=== PATIENT | male | born 1980 | race Caucasian/White ===

== ENCOUNTER 2018-07-26 20:21 | Inpatient (IN) ==
[2018-07-26 20:38] LABS: URINE SOURCE CATH
[2018-07-26] MEDS ORDERED: NS 1,000 ML IV ONE (20:47)
--- NOTE | 2018-07-26 20:47 | PROVIDER DOCUMENTATION ---
[id number] Abuse/Overdose - General Chief Complaint: Overdose Stated Complaint: OD Time Seen by Provider: 07/26/18 20:22 Allergies/Adverse Reactions: Allergies Allergy/AdvReac Type Severity Reaction Status Date / Time No Known Allergies Allergy Verified 07/20/18 14:37 Home Medications: Home Medication List Medication Instructions Recorded Confirmed Last Taken Type NK [No Home Medications] 07/20/18 07/20/18 Unknown History Past History - Adult - PAST MEDICAL HISTORY-ADULT Major Childhood Illnesses: reports: denies history Cardiovascular: reports: denies history Respiratory: reports: denies history Gastrointestinal: reports: denies history Obstetrical/Gynecological: reports: denies history Genitourinary: reports: denies history Musculoskeletal: reports: denies history Neurological: reports: denies history Endocrine/Immune: reports: denies history Other Conditions: reports: denies history - IMMUNIZATION STATUS Childhood Immunizations: See Nurse Assessment Flu Vaccine: See Nurse Assessment - FAMILY HISTORY Family History: reviewed, not pertinent Progress - PLAN OF CARE/RESULTS Progress/Plan/Lab Results: Vital Signs - 8 hr 07/26/18 20:22 Temperature 98.6 F Pulse Rate 106 H Respiratory Rate 18 Blood Pressure 154/95 O2 Sat by Pulse Oximetry 100 Laboratory Results - last 24 hr 07/26/18 07/26/18 20:21 20:34 POC Glucose 129 H Urine Source CATH Orders Category Date Time Status Cardiac Monitoring DIRECTED Care 07/26/18 20:28 Active Finger Stick Blood Sugar (ED) DIRECTED Care 07/26/18 20:28 Active Ruiz Cath Insertion ORDERED Care 07/26/18 20:34 Active ACETAMINOPHEN [TDM] Stat Lab 07/26/18 20:28 Ordered ALCOHOL BLOOD Stat Lab 07/26/18 20:28 Ordered CBC WITH ELECTRONIC DIFF [HEME] Stat Lab 07/26/18 20:31 Ordered COMPREHENSIVE METABOLIC PANEL [CHEM] Stat Lab 07/26/18 20:31 Ordered SALICYLATES [TDM] Stat Lab 07/26/18 20:[address] [URINALYSIS] Stat Lab 07/26/18 20:[address] S[address]EN [address] Stat Lab 07/26/18 20:21 Received Overdose (suspected) Stat Oth 07/26/18 20:28 Ordered EKG [EKG] Stat Ther 07/26/18 20:28 Ordered Departure - Departure Referrals and Follow-Ups: None,PCP [Primary Care Provider] -
[2018-07-26 20:53] LABS: BILIRUBIN URINE NEGATIVE (NEGATIVE); BLOOD URINE TRACE (NEGATIVE); CLARITY CLEAR (CLEAR); COLOR YELLOW; GLUCOSE URINE NEGATIVE (NEGATIVE); KETONE URINE TRACE mg/dL (NEGATIVE); LEUKOCYTES URINE TRACE (NEGATIVE); NITRITE URINE NEGATIVE (NEGATIVE); PROTEIN URINE 1+(30 mg/dL) mg/dL (NEGATIVE); UROBILINOGEN URINE NORMAL
[2018-07-26 20:59] LABS: BASO# 0.02 X1000 (0.0-0.2); BASO% 0.2 % (0.0-0.8); EOS# 0.12 X1000 (0.0-0.7); HEMATOCRIT 40.9 % (42.0-52.0); HEMOGLOBIN 14.1 g/dL (14.0-18.0); IMM GRAN# 0.01 X1000 (0.0-0.04); IMM GRAN% 0.1 % (0.0-0.5); LYMPH# 2.61 X1000 (1.2-3.4); LYMPH% 20.8 % (20.5-51.1); MCH 30.3 PG (27-31); MCHC 34.5 g/dL (33-37); MONO# 1.26 X1000 (0.11-0.59); MPV 10.2 FL (7.4-10.4); NEUT# 8.53 X1000 (1.4-6.5); NEUT% 67.9 % (42.2-75.2); PLT 92 X1000 (130-400); RBC 4.65 XMIL (4.7-6.1); RDW 12.9 % (11.5-14.5); WBC 12.55 X1000 (4.8-10.8)
[2018-07-26 21:00] LABS: UR AMPHETAMINES QUAL PRESUMPTIVE POSITIVE (NONE DETECT); UR BARBITUATES QUAL NONE DETECTED (NONE DETECT); UR BENZODIAZEPIN QUAL NONE DETECTED (NONE DETECT); UR CANNABINOIDS QUAL NONE DETECTED (NONE DETECT); UR COCAINE QUAL NONE DETECTED (NONE DETECT); UR METHADONE QUAL NONE DETECTED (NONE DETECT); UR METHAMPHETAMINE QUAL PRESUMPTIVE POSITIVE (NONE DETECT); UR OPIATES QUAL NONE DETECTED (NONE DETECT); UR OXYCODONE QUAL NONE DETECTED (NONE DETECT); UR PCP QUAL NONE DETECTED (NONE DETECT); UR PROPOXYPHENE QUAL NONE DETECTED (NONE DETECT); UR TCA QUAL NONE DETECTED (NONE DETECT)
[2018-07-26] MEDS ORDERED: ATIVAN IV ONE (21:04)
[2018-07-26 21:05] LABS: URINE BACTERIA 1+ /HFP; URINE EPITHELIAL CELLS <10 /HPF (<10); URINE RBC <10 /HPF (<10); URINE WBC <10 /HPF (<10); URINE YEAST NONE SEEN /HPF
[2018-07-26 21:06] LABS: URINE CAST GRANULAR PRESENT /LPF; URINE CRYSTAL NONE SEEN /HPF
[2018-07-26 21:10] LABS: AGAP 19; ALBUMIN 4.8 g/dL (3.5-5.0); ALKALINE PHOSPHATASE 67 U/L (32-122); BUN 11 mg/dL (8-22); CALCIUM 9.9 mg/dL (8.8-10.2); CHLORIDE 97 mmol/L (98-107); COSMO 276; CREATININE 1.4 mg/dL (0.7-1.2); ESTIMATED GFR 57; GLUCOSE 117 mg/dL (70-104); GOT 40 U/L (10-34); GPT 31 U/L (10-44); POTASSIUM 3.9 mmol/L (3.5-5.1); SALICYLATES < 3.00 mg/dL (3-10); SODIUM 138 mmol/L (136-145); TCO2 23 mmol/L (25-35)
[2018-07-26 21:41] LABS: BE -1.8 mmoll (-2.0-2.0); BLOOD TYPE VENOUS; HCO3-(ACT) 23.1 mmoll (22-27); PCO2(98.6) 39 mmHg (40-60); PO2(98.6) 50 mmHg (30-55); SAMPLE BLOOD; SAO2 88.2 % (40.0-85.0); pH(98.6) 7.38 (7.32-7.43)
--- NOTE | 2018-07-26 21:51 | Diag Imaging Result Doc PS360 ---
EXAM: CHEST-1 VIEW HISTORY: tb, PNA TECHNIQUE: Chest two views COMPARISON: 07/20/2018 FINDINGS: The lungs are well expanded. The heart is not enlarged. The vessels are not distended. There are no infiltrates. No effusion identified. IMPRESSION: No pneumonia. Electronically signed by Scooby Arellano 07/26/2018 9:48 PM
[2018-07-26] MEDS ORDERED: GEODON ONE (22:39)
[2018-07-26] MEDS ORDERED: STERILE WATER INJ. ONE (22:40)
[2018-07-26] MEDS ORDERED: GEODON IM ONE (22:44)
[2018-07-26] MEDS ORDERED: STERILE WATER INJ. INJ ONE (22:44)
[2018-07-26 23:37] LABS: CK INDEX 0.4 (0.0-2.5); CK-MB 2.03 ng/mL (0.0-5.0)
[2018-07-26 23:44] LABS: INR 1.1; PROTIME 14.8 Seconds (11.0-16.0); PTT 28.1 Seconds (22.3-41.8)
[2018-07-27] MEDS ORDERED: NS 1,000 ML IV ONE ×2 (00:03→05:23)
--- NOTE | 2018-07-27 01:13 | PROVIDER DOCUMENTATION ---
This chart was entered by Adriane Arriaza Scribe, acting as scribe for Juanis Liang MD. [id number] Abuse/Overdose - General Chief Complaint: Overdose Stated Complaint: OD Time Seen by Provider: 07/26/18 20:22 Source: family, police, EMS Allergies/Adverse Reactions: Allergies Allergy/AdvReac Type Severity Reaction Status Date / Time No Known Allergies Allergy Verified 07/20/18 14:37 Home Medications: Home Medication List Medication Instructions Recorded Confirmed Last Taken Type NK [No Home Medications] 07/20/18 07/20/18 Unknown History - History of Present Illness-Drug/Alcohol Nature of Presenting Problem: 38 yom presents to ed w/family w/co pt arrived via ems. pt was discharged from [facility] a week ago, pt's family states he has been acting paranoid, schizophrenic, hearing voices, and wants to hurt others. pt was in [facility] [place] and was fine while there. pt disappeared earlier today and came back home rigid at front door and couldn't do anything except say "help me." pt's family does not know what he took. pt has active TB, per family and ems and police, and was taking rx but flushed them down the toilet. pts family couldn' t get him into car so ems was called to take him to ed. Review of Systems - Adult - REVIEW OF SYSTEMS - ADULT Constitutional: reports: no symptoms reported Eyes: reports: no symptoms reported Ears, Nose, Mouth & Throat: reports: no symptoms reported Cardiovascular: reports: no symptoms reported Respiratory: reports: no symptoms reported Gastrointestinal: reports: no symptoms reported Genitourinary: reports: no symptoms reported Musculoskeletal: reports: no symptoms reported Integumentary: reports: no symptoms reported Neurological: reports: no symptoms reported Psychiatric: reports: see HPI, alcohol/drug dependence, other (schizophrenic, homicidal thoughts, paranoid) Endocrine: reports: no symptoms reported Hematologic/Lymphatic: reports: no symptoms reported Allergic/Immunologic: reports: no symptoms reported All Other Systems: Reviewed and Negative Past History - Adult - PAST MEDICAL HISTORY-ADULT Review of Records: reports: Old Records Reviewed, Nursing Assessment Review, Medications Reviewed, Social history reviewed & non-contributory. Major Childhood Illnesses: reports: denies history Cardiovascular: reports: denies history Respiratory: reports: other (suspected active tb) Gastrointestinal: reports: denies history Obstetrical/Gynecological: reports: denies history Genitourinary: reports: denies history Musculoskeletal: reports: denies history Neurological: reports: denies history Psychiatric: reports: schizophrenia, other (paranoid, homicidal thoughts) Endocrine/Immune: reports: denies history Other Conditions: reports: denies history - PRIOR SURGERIES/PROCEDURES Surgical/Procedure History: reports: none - IMMUNIZATION STATUS Childhood Immunizations: See Nurse Assessment Flu Vaccine: See Nurse Assessment - FAMILY HISTORY Family History: reviewed, not pertinent - SOCIAL HISTORY Smoking: cigarettes, greater than 1 pack/day Provider spent 3-5 mins advising pt. on dangers of tobacco.: Discussed manners to quit use, and f/u contacts for add'l counseling. Substance Use: alcohol, other (multiple drugs) Alcohol Use Frequency: occasionally Physical Exam-General - PHYSICAL EXAM-ADULT Initial Vital Signs Reviewed: Yes - CONSTITUTIONAL General Appearance: alert, mild distress, cachetic, anxious - EYES Eyes: PERRL/EOMI (dilated pupil), pink conjunctivae - HEAD, EARS, NOSE, MOUTH & THROAT HENMT: normocephalic/atraumatic, moist mucous membranes, normal ENT inspection - NECK Neck: non-tender, full range of motion, supple - RESPIRATORY Respiratory: chest non-tender, lungs clear, normal breath sounds - CARDIOVASCULAR Cardiovascular: tachycardia. negative: bradycardia, diastolic murmur, systolic murmur - GASTROINTESTINAL (ABDOMEN) Abdominal Exam: normal bowel sounds, non tender, soft - LYMPHATIC Lymphatic: no adenopathy - MUSCULOSKELETAL Back Exam: normal inspection, no CVA tenderness, no vertebral tenderness Extremity: normal range of motion, non-tender, other (nvi upper and lower extremity.). negative: abnormal NV exam, deformity, erythema, inflammation - SKIN Integumentary: normal color, normal turgor, warm/dry, other (multiple tattoos) - NEUROLOGIC Neurologic: grossly normal, no motor/sensory deficits - PSYCHIATRIC Psych/Mental Status: oriented x 3 Progress - PLAN OF CARE/RESULTS Progress/Plan/Lab Results: Vital Signs - 8 hr 07/26/18 20:22 07/27/18 00:17 Temperature 98.6 F Pulse Rate 106 H 92 H Respiratory Rate 18 19 Blood Pressure 154/95 109/66 O2 Sat by Pulse Oximetry 100 99 Laboratory Results - last 24 hr 07/26/18 07/26/18 07/26/18 20:21 20:21 20:29 WBC RBC Hgb Hct MCV MCH MCHC RDW Std Deviation Plt Count MPV Immature Gran % (Auto) Neut % (Auto) Lymph % (Auto) Ross % (Auto) Eos % (Auto) Baso % (Auto) Immature Gran # (Auto) Neut # (Auto) Lymph # (Auto) Ross # (Auto) Eos # (Auto) Baso # (Auto) PT INR PTT (Actin FS) Specimen Type VBG pH VBG pCO2 VBG pO2 VBG HCO3 VBG O2 Saturation VBG Base Excess VBG Lactate Sodium Potassium Chloride Carbon Dioxide Anion Gap BUN Creatinine Estimated GFR/1.73 m2 BUN/Creatinine Ratio Glucose POC Glucose Calculated Osmolality Calcium Total Bilirubin AST ALT Alkaline Phosphatase Creatine Kinase Creatine Kinase Index CK-MB (CK-2) Troponin T Total Protein Albumin Globulin Albumin/Globulin Ratio Plasma Lactate Urine Source CATH Urine Color YELLOW Urine Clarity CLEAR Urine pH 7.0 Ur Specific Fyffe 1.010 Urine Protein 1+(30 mg/dL) A Urine Ketones TRACE Urine Blood TRACE Urine Nitrite NEGATIVE Urine Bilirubin NEGATIVE Urine Urobilinogen NORMAL Urine Microscopic RBC <10 Urine WBC TRACE A Urine Microscopic WBC <10 Ur Epithelial Cells <10 Urine Crystals NONE SEEN Urine Bacteria 1+ Urine Casts GRANULAR PRESENT Urine Yeast NONE SEEN Urine Glucose NEGATIVE Salicylates Urine Opiates Screen NONE DETECTED Ur Oxycodone Screen NONE DETECTED Urine Methadone Screen NONE DETECTED U Propoxyphene Qual NONE DETECTED Acetaminophen < 1.2 L Ur Barbituates Screen NONE DETECTED Ur Tricyclics Screen NONE DETECTED Ur Phencyclidine Scrn NONE DETECTED Ur Amphetamines Screen PRESUMPTIVE POSITIVE A U Methamphetamines Scrn PRESUMPTIVE POSITIVE A U Benzodiazepines Scrn NONE DETECTED Urine Cocaine Screen NONE DETECTED U Cannabinoids Screen NONE DETECTED Plasma/Serum Ethyl Alc 07/26/18 07/26/18 07/26/18 20:29 20:29 20:29 WBC 12.55 H RBC 4.65 L Hgb 14.1 Hct 40.9 L MCV 88.0 MCH 30.3 MCHC 34.5 RDW Std Deviation 12.9 Plt Count 92 L MPV 10.2 Immature Gran % (Auto) 0.1 Neut % (Auto) 67.9 Lymph % (Auto) 20.8 Ross % (Auto) 10.0 H Eos % (Auto) 1.0 Baso % (Auto) 0.2 Immature Gran # (Auto) 0.01 Neut # (Auto) 8.53 H Lymph # (Auto) 2.61 Ross # (Auto) 1.26 H Eos # (Auto) 0.12 Baso # (Auto) 0.02 PT INR PTT (Actin FS) Specimen Type VBG pH VBG pCO2 VBG pO2 VBG HCO3 VBG O2 Saturation VBG Base Excess VBG Lactate Sodium 138 Potassium 3.9 Chloride 97 L Carbon Dioxide 23 L Anion Gap 19 BUN 11 Creatinine 1.4 H Estimated GFR/1.73 m2 57 BUN/Creatinine Ratio 8 Glucose 117 H POC Glucose Calculated Osmolality 276 Calcium 9.9 Total Bilirubin 0.70 AST 40 H ALT 31 Alkaline Phosphatase 67 Creatine Kinase Creatine Kinase Index CK-MB (CK-2) Troponin T Total Protein 8.0 Albumin 4.8 Globulin 3.0 Albumin/Globulin Ratio 2.0 Plasma Lactate Urine Source Urine Color Urine Clarity Urine pH Ur Specific Fy[place] Urine Protein Urine Ketones Urine Blood Urine Nitrite Urine Bilirubin Urine Urobilinogen Urine Microscopic RBC Urine WBC Urine Microscopic WBC Ur Epithelial Cells Urine Crystals Urine Bacteria Urine Casts Urine Yeast Urine Glucose Salicylates < 3.00 L Urine Opiates Screen Ur Oxycodone Screen Urine Methadone Screen U Propoxyphene Qual Acetaminophen Ur Barbituates Screen Ur Tricyclics Screen Ur Phencyclidine Scrn Ur Amphetamines Screen U Methamphetamines Scrn U Benzodiazepines Scrn Urine Cocaine Screen U Cannabinoids Screen Plasma/Serum Ethyl Alc 07/26/18 07/26/18 07/26/18 20:29 20:29 20:29 WBC RBC Hgb Hct MCV MCH MCHC RDW Std Deviation Plt Count MPV Immature Gran % (Auto) Neut % (Auto) Lymph % (Auto) Ross % (Auto) Eos % (Auto) Baso % (Auto) Immature Gran # (Auto) Neut # (Auto) Lymph # (Auto) Ross # (Auto) Eos # (Auto) Baso # (Auto) PT 14.8 INR 1.10 PTT (Actin FS) 28.1 Specimen Type VBG pH VBG pCO2 VBG pO2 VBG HCO3 VBG O2 Saturation VBG Base Excess VBG Lactate Sodium Potassium Chloride Carbon Dioxide Anion Gap BUN Creatinine Estimated GFR/1.73 m2 BUN/Creatinine Ratio Glucose POC Glucose Calculated Osmolality Calcium Total Bilirubin AST ALT Alkaline Phosphatase Creatine Kinase 560 H Creatine Kinase Index 0.4 CK-MB (CK-2) 2.03 Troponin T < 0.010 Total Protein Albumin Globulin Albumin/Globulin Ratio Plasma Lactate Urine Source Urine Color Urine Clarity Urine pH Ur Specific Fyffe Urine Protein Urine Ketones Urine Blood Urine Nitrite Urine Bilirubin Urine Urobilinogen Urine Microscopic RBC Urine WBC Urine Microscopic WBC Ur Epithelial Cells Urine Crystals Urine Bacteria Urine Casts Urine Yeast Urine Glucose Salicylates Urine Opiates Screen Ur Oxycodone Screen Urine Methadone Screen U Propoxyphene Qual Acetaminophen Ur Barbituates Screen Ur Tricyclics Screen Ur Phencyclidine Scrn Ur Amphetamines Screen U Methamphetamines Scrn U Benzodiazepines Scrn Urine Cocaine Screen U Cannabinoids Screen Plasma/Serum Ethyl Alc 07/26/18 07/26/18 07/26/18 20:34 21:28 21:29 WBC RBC Hgb Hct MCV MCH MCHC RDW Std Deviation Plt Count MPV Immature Gran % (Auto) Neut % (Auto) Lymph % (Auto) Ross % (Auto) Eos % (Auto) Baso % (Auto) Immature Gran # (Auto) Neut # (Auto) Lymph # (Auto) Ross # (Auto) Eos # (Auto) Baso # (Auto) PT INR PTT (Actin FS) Specimen Type VENOUS VBG pH 7.38 VBG pCO2 39 L VBG pO2 50 VBG HCO3 23.1 VBG O2 Saturation 88.2 H VBG Base Excess -1.8 VBG Lactate 3.90 H Sodium Potassium Chloride Carbon Dioxide Anion Gap BUN Creatinine Estimated GFR/1.73 m2 BUN/Creatinine Ratio Glucose POC Glucose 129 H Calculated Osmolality Calcium Total Bilirubin AST ALT Alkaline Phosphatase Creatine Kinase Creatine Kinase Index CK-MB (CK-2) Troponin T Total Protein Albumin Globulin Albumin/Globulin Ratio Plasma Lactate 3.5 H Urine Source Urine Color Urine Clarity Urine pH Ur Specific [place] Urine Protein Urine Ketones Urine Blood Urine Nitrite Urine Bilirubin Urine Urobilinogen Urine Microscopic RBC Urine WBC Urine Microscopic WBC Ur Epithelial Cells Urine Crystals Urine Bacteria Urine Casts Urine Yeast Urine Glucose Salicylates Urine Opiates Screen Ur Oxycodone Screen Urine Methadone Screen U Propoxyphene Qual Acetaminophen Ur Barbituates Screen Ur Tricyclics Screen Ur Phencyclidine Scrn Ur Amphetamines Screen U Methamphetamines Scrn U Benzodiazepines Scrn Urine Cocaine Screen U Cannabinoids Screen Plasma/Serum Ethyl Alc Orders Category Date Time Status Cardiac Monitoring DIRECTED Care 07/26/18 20:28 Active Finger Stick Blood Sugar (ED) DIRECTED Care 07/26/18 20:28 Active Ruiz Cath Insertion ORDERED Care 07/26/18 20:34 Active Notify MD of + Sepsis Screen NOW Care 07/26/18 22:32 Active Notify Physician As Ordered Care 07/26/18 22:32 Active Restraint Initiate NonViolent ONCE Care 07/26/18 21:16 Active CHEST-1 VIEW [RAD] Stat Exams 07/26/18 21:08 Completed ACETAMINOPHEN [TDM] Stat Lab 07/26/18 20:29 Completed ALCOHOL BLOOD Stat Lab 07/26/18 20:29 Completed BLOOD CULTURE [BLDCUL] Stat Lab 07/26/18 22:32 Ordered CBC WITH ELECTRONIC DIFF [HEME] Stat Lab 07/26/18 20:29 Completed CK PROFILE [SP CHEM] Stat Lab 07/26/18 20:29 Completed COMPREHENSIVE METABOLIC PANEL [CHEM] Stat Lab 07/26/18 20:29 Completed LACTATE, PLASMA [CHEM] Lab 07/26/18 22:45 Uncollected LACTATE, PLASMA [CHEM] Lab 07/27/18 01:45 Uncollected LACTATE, PLASMA [CHEM] Lab 07/27/18 04:45 Uncollected LACTATE, PLASMA [CHEM] Stat Lab 07/26/18 21:29 Completed PROTIME WITH INR [COAG] Stat Lab 07/26/18 20:29 Completed PTT [COAG] Stat Lab 07/26/18 20:29 Completed SALICYLATES [TDM] Stat Lab 07/26/18 20:29 Completed TROPONIN T Stat Lab 07/26/18 20:[address] [URINALYSIS] Stat Lab 07/26/18 20:21 Completed [address]INE DRUG SCREEN PL Stat Lab 07/26/18 20:21 Completed URINE MICROSCOPIC [URINALYSIS] Stat Lab 07/26/18 20:21 Completed VBG [VENOUS BLOOD GAS] [RESP] Routine Lab 07/26/18 21:28 Completed 0.9% Sodium Chloride Inj [Ns] 1,000 ml Med 07/26/18 20:47 Discontinued IV 999 mls/hr 0.9% Sodium Chloride Inj [Ns] 1,000 ml Med 07/27/18 00:03 Discontinued IV 999 mls/hr Lorazepam [Ativan] Med 07/26/18 21:04 Discontinued 1 mg IV NOW ONE Water, Sterile Inj [Sterile Water Inj] Med 07/26/18 22:44 Discontinued 1.2 ml INJ NOW ONE Water, Sterile Inj [Sterile Water Inj] Med 07/26/18 22:40 Discontinued 10 ml .ROUTE .STK-MED ONE Ziprasidone [Geodon] Med 07/26/18 22:44 Discontinued 10 mg IM NOW ONE Ziprasidone [Geodon] Med 07/26/18 22:39 Discontinued 20 mg .ROUTE .STK-MED ONE Overdose (suspected) Stat Oth 07/26/18 20:28 Ordered EKG [EKG] Stat Ther 07/26/18 20:28 Ordered Transfer/Admit Order [TRANSFER] Routine Transfer 07/26/18 23:45 Ordered Result Diagrams: 07/26/18 20:29 07/26/18 20:29 Departure - Departure Date of Disposition Decision: 07/27/18 Time of Disposition Decision: 01:12 DIAGNOSIS: Active tuberculosis, Drug overdose, Psychosis Disposition: ADMITTED INPATIENT 09 Certified Medical Emergency: Emergent Condition: Stable - Critical Care Note This patient required my direct & personal management of CC.: No Attestation - Physician/ ZOILA Attestation Patient care was provided by Advanced Practice Provider:: No The physician spent face to face time with patient:: Yes Advanced Practice Provider documentation review:: Supervising physician onsite and consulted in the evaluation and care of this patient. The physician did have a face to face encounter with the patient. This chart was documented by the indicated scribe, (Adriane Arriaza Scribe) and accurately reflects the services I performed and decisions made by me, Juanis Liang MD, as attested by the provider's signature.
[2018-07-27] MEDS ORDERED: GEODON ONE (01:21)
[2018-07-27] MEDS ORDERED: STERILE WATER INJ. ONE (01:21)
[2018-07-27] MEDS ORDERED: GEODON IM ONE (01:22)
[2018-07-27] MEDS ORDERED: STERILE WATER INJ. INJ ONE (01:22)
[2018-07-27] MEDS ORDERED: NS 1,000 ML ONE (05:21)
--- NOTE | 2018-07-27 09:31 | EKG Report ---
Test Performed on : 07/26/2018 8:37:42 PM Test Reason : possible overdose Blood Pressure : / mmHG Vent. Rate : 094 BPM Atrial Rate : 094 BPM P-R Int : 122 ms QRS Dur : 076 ms QT Int : 390 ms P-R-T Axes : 074 056 066 degrees QTc Int : 487 ms Normal sinus rhythm. Minimal voltage criteria for LVH, may be normal variant Septal infarct (cited on or before 05-NOV-2012) Abnormal ECG When compared with ECG of 05-NOV-2012 14:30, Vent. rate has increased BY 36 BPM Unconfirmed Result
[2018-07-27 13:20] VITALS: BP 107/74
--- NOTE | 2018-07-27 19:51 | HISTORY AND PHYSICAL ---
ADDENDUM: Patient seen and examined by myself. Full note dictated and discussed with nurse practitioner. The patient presented to the hospital confused and disoriented. This appears to be secondary to intentional drug usage. Currently he is awake, alert. He is in no distress. He does have TB and has not actually been taking his medications. We discussed with him the importance of this as well as have attempted to call the Health Department to notify them. Please see full note. cc: Richard Berkowitz MD
--- NOTE | 2018-07-28 01:34 | DISCHARGE SUMMARY ---
ADMISSION DATE: 07/27/2018 DISCHARGE DATE: 07/27/2018 DISCHARGE DIAGNOSES: 1. Left against medical advice. 2. Intentional drug usage causing metabolic encephalopathy. 3. Hypoxemia, resolved, causing metabolic encephalopathy, resolved. 4. Tuberculosis. HOSPITAL COURSE: The patient was seen in the ER. Unfortunately, he refused to stay in the hospital. We discussed the importance of taking his medications for his tuberculosis. We did attempt to notify the health department while he was in the ER. However, patient refused to stay and left AMA. cc: Richard Berkowitz MD
--- NOTE | 2018-07-28 09:51 | HISTORY AND PHYSICAL ---
This is a delayed dictation. The patient was actually seen by myself as well as Dr. Berkowitz on 07/27/2018 in the emergency room. CHIEF COMPLAINT: Altered mental status. HISTORY OF PRESENT ILLNESS: This is a 38-year-old gentleman who presented to the emergency room via EMS, having been called by his family members. Reportedly, the patient was in [facility] [place] [facility] [place]. He was fine while he was there. The family stated that he disappeared earlier in the day. He came back home to their door, saying "help me". They were unable to get him to the hospital in a private vehicle. Therefore, they called EMS. Reportedly, the patient has active TB and was taking medications but flushed them down the toilet, per the ER record. When the patient was questioned about having TB, we were given multiple answers. He stated that he had 3 false positive TB tests in the past. Another time, he stated that he had active TB years ago but he did not take medications. PAST MEDICAL HISTORY: Reported active TB. PAST SURGICAL HISTORY: Denies. SOCIAL HISTORY: He smokes about a pack a day. He does drink alcohol when he can get it and he does use illicit drugs. ALLERGIES: No known drug allergies. HOME MEDICATIONS: Denies. REVIEW OF SYSTEMS: Discussed with the patient with pertinent positives stated in the HPI. He denied any syncope, dizziness, chest pain, palpitations, shortness of breath, cough, fever, chills, any night sweats, recent weight loss or weight gain, any shortness of breath, PND, orthopnea, nausea, vomiting, diarrhea, constipation, black or bloody vomitus or stools, any hematuria, dysuria, frequency, urgency. PHYSICAL EXAMINATION: GENERAL: This is a 38-year-old gentleman who is lying on the stretcher in the emergency room. He is in no distress, although he is agitated. VITAL SIGNS: Blood pressure is 101/60 with a heart rate of 76, respirations are 18, temperature is 98.6 degrees, with room air saturations 95-99%. EYES: Pupils are equal, round, react to light. EOMs are intact. Sclerae are anicteric. HEENT: Head is normocephalic, atraumatic. Mucous membranes are moist. NECK: Supple with trachea midline. CARDIOVASCULAR: Regular rate and rhythm. S1 and S2 are appreciated. He has no lower extremity edema. He states his calves are nontender. PULMONARY: Breath sounds are clear with no increased work of breathing noted. Chest rises and falls symmetrically with respiration. Chest wall is nontender to palpation. GASTROINTESTINAL: Abdomen is soft, nontender, nondistended, with bowel sounds in all 4 quadrants. NEUROLOGIC: He is alert and oriented. He is sometimes cooperative. GENITOURINARY: Ruiz catheter is patent. Bedside bag with apple urine draining. LABORATORY DATA: WBC is 12.5, with hemoglobin 14.1, hematocrit 40.9, and platelets of 92,000. Sodium 138, potassium 3.9, BUN 11, creatinine 1.4, with a glucose of 117. CPK is 560. He does have a lactate of 3.5. Urine drug screen is presumptive positive for amphetamines and methamphetamines. Blood alcohol is none detected. Blood cultures are pending. Chest x-ray revealed no pneumonia. Lungs are well expanded. Heart is not enlarged. Vessels are not distended. There are no infiltrates. No effusion is identified. ASSESSMENT AND PLAN: 1. 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 2. Methamphetamine use. 3. Reportedly active tuberculosis in a patient on no medications. 4. Tobacco use and abuse. PLAN: The patient will be admitted to [facility], of course in a negative pressure isolation room. We will consult Dr. Tate Devlin in infectious disease. The patient is cooperative for the most part. He states he just feels like he is cooped up in this hospital room. He should be placed on telemetry as he did use methamphetamines. We will continue with IV hydration. Further treatments pending hospital course. Dictated by JEAN MARIE Beatty for Richard Berkowitz MD This chart was documented by, JEAN MARIE Beatty and accurately reflects the services performed, treatment plan and medical decisions as attested by the providers signature Richard Berkowitz MD. cc: JEAN MARIE Beatyt MD
--- NOTE | 2018-07-28 10:26 | HISTORY AND PHYSICAL ---
ADDENDUM REPORT I did speak with Raina [*] our Infectious Disease nurse. She is aware of the patient being in the ER and pending admission. She is aware of the events, stating that he has TB, although he is on no medications. She states she will notify the health department on Sunday. Dictated by JEAN MARIE Beatty for Richard Berkowitz MD This chart was documented by, JEAN MARIE Beatty and accurately reflects the services performed, treatment plan and medical decisions as attested by the providers signature Richard Berkowitz MD. cc: JEAN MARIE Beatty MD
== END 2018-07-27 13:53 | disposition left against medical advice (07) | DRG 917 ==
LOC: P.ED 20:21 → P.EDIPHOLD 07-27 00:42
CPT/HCPCS: 51702; 71010; 71045; 80053; 80104; 80196; 80301; 80305; 80307; 80320; 80324; 80329; 81001; 82003; 82055; 82550; 82553; 82805; 82948; 83605; 84484; 85025; 85610; 85730; 87040; 93005; 96361; 96372; 96374; 99285; G0431; G0434; G0477; G0480; G6038; G6039; G6040; J2060; J3486; J7030; XXXXX